=== PATIENT | female | born 1955 | race Caucasian/White ===

== ENCOUNTER → 2018-04-05 | Outpatient (CLI) | payer OTHER, MEDICARE ==
--- NOTE | 2018-04-05 16:39 | PCVCIMAG ---
APPROVED REPORT Study performed: 04/05/2018 10:41:38 EXAM: Comprehensive 2D, Doppler, and color-flow Echocardiogram Patient Location: Echo lab Status: routine BSA: 1.92 HR: 68 bpmBP: 122/76 mmHg Rhythm: NSR Other Information Study Quality: Adequate Indications Congestive Heart Failure Dyspnea CAD hx LA 2D Dimensions IVSd: 10.76 (7-11mm) LVDd: 43.42 mm PWd: 11.12 (7-11mm)Ascending Ao: 30.15 (22-36mm) LVDs: 33.45 (25-40mm) Left Atrium: 43.98 (27-40mm) Aortic Root: 34.72 mm LV Single Plane 4CH: 69.26 % LV Single Plane 2CH: 73.96 % Biplane EF: 71.0 % Volumes Left Atrial Volume (Systole) Single Plane 4CH: 104.74 mLSingle Plane 2CH: 84.87 mL LA ESV Index: 50.00 mL/m2 Aortic Valve AoV Peak Samir.: 2.09 m/s AO Peak Gr.: 17.52 mmHgLVOT Max P.99 mmHg LVOT Max V: 1.58 m/s Mitral Valve E/A Ratio: 1.0 MV Decel. Time: 249.91 ms MV E Max Samir.: 0.89 m/s MV A Samir.: 0.85 m/s IVRT: 76.12 ms Pulmonary Valve PV Peak Samir.: 1.06 m/sPV Peak Gr.: 4.47 mmHg Pulmonary Vein P Vein S: 0.29 m/sP Vein A: 0.33 m/s P Vein D: 0.58 m/sP Vein A Dur.: 152.2 msec P Vein S/D Ratio: 0.50 Tricuspid Valve TR Peak Samir.: 2.82 m/s TR Peak Gr.: 31.87 mmHg TV Vmax: 0.57 m/s Left Ventricle The left ventricle is normal size. There is normal LV segmental wall motion. There is normal left ventricular wall thickness. Left ventricular systolic function is normal. The left ventricular ejection fraction is within the normal range. LVEF is 65-70%. Grade II - pseudonormal filling dynamics. Right Ventricle The right ventricle is normal size. The right ventricular systolic function is normal. Atria Left atrium is severely dilated. Right atrium is at the upper limits of normal. Aortic Valve Moderate aortic valve sclerosis. No aortic regurgitation is present. There is no aortic valvular stenosis, however mildly increased, non-obstructive LVOT velocity present. Mitral Valve The mitral valve is normal in structure. Mild to moderate mitral regurgitation. No evidence of mitral valve stenosis. Tricuspid Valve The tricuspid valve is normal in structure. Mild tricuspid regurgitation with PAP of 39 mmHg. Pulmonic Valve The pulmonary valve is normal in structure. Trace pulmonic regurgitation. Great Vessels The aortic root is normal in size. IVC is normal in size and collapses >50% with inspiration. Pericardium There is no pericardial effusion. There is no pleural effusion. <Conclusion> The left ventricle is normal size. LVEF is 65-70%. Grade II - pseudonormal filling dynamics. The right ventricle is normal size. Left atrium is severely dilated. Right atrium is at the upper limits of normal. Moderate aortic valve sclerosis. There is no aortic valvular stenosis, however mildly increased, non-obstructive LVOT velocity present. Mild to moderate mitral regurgitation. Mild tricuspid regurgitation with PAP of 39 mmHg. The aortic root is normal in size. There is no pericardial effusion.
== END | disposition home or self-care (01) ==
LOC: PCVCIMAG 11:14
PROVIDERS: ATTEND Internal Medicine Cardiovascular Disease
DX: I08.0 Rheumatic disorders of both mitral and aortic valves (principal); I25.10 Atherosclerotic heart disease of native coronary artery without angina pectoris; R06.02 Shortness of breath; I25.5 Ischemic cardiomyopathy; I21.9 Acute myocardial infarction, unspecified; I50.9 Heart failure, unspecified
CPT/HCPCS: 93306

== ENCOUNTER → 2018-04-26 | Outpatient (CLI) | payer OTHER, MEDICARE ==
[~2018-04-26] MED LIST: REGADENOSON 0.4 MG/5 ML DISP.SYRIN. IV ONE
--- NOTE | 2018-04-26 09:03 | PCVCIMAG ---
EXAM: BILATERAL CAROTID DUPLEX INDICATION: Carotid Occlusive Disease. FINDINGS: Doppler Measurements (centimeters per second): RIGHT: Peak CCA-90, Peak ECA-102, Diastolic ICA-45, Peak ICA-111, ICA/CCA Ratio-1.2. LEFT: Peak CCA-100, Peak ECA-95, Diastolic ICA-41, Peak ICA-116, ICA/CCA Ratio-1.2. RIGHT CAROTID: The carotid bulb has mild plaque. The proximal internal carotid artery shows <40% stenosis. The common carotid artery shows no significant stenosis. The external carotid artery shows no significant stenosis. LEFT CAROTID: The carotid bulb has minimal plaque. The proximal internal carotid artery shows no significant stenosis. The common carotid artery shows no significant stenosis. The external carotid artery shows no significant stenosis. Antegrade flow in both vertebral arteries. IMPRESSION: <40% stenosis of the right internal carotid artery with mild plaque. No significant stenosis of the left internal carotid artery with minimal plaque. LOC:[id number]
--- NOTE | 2018-04-26 11:54 | PCVCIMAG ---
EXAM: ULTRASOUND OF THE THYROID INDICATION: Thyroid nodules. FINDINGS: The right thyroid lobe measures 1.4 x 1.5 x 4.7 cm. The left thyroid lobe measures 1.4 x 1.7 x 4.6 cm. 0.3 x 0.6 x 0.6 cm hypoechoic solid nodule mid right thyroid lobe. 0.5 x 0.8 x 0.8 cm solid partially calcified nodule medial aspect mid/lower right thyroid lobe. 0.9 x 0.9 x 1.1 cm solid nodule mid/lower left thyroid lobe laterally is the most dominant nodule. 0.4 x 0.5 x 0.5 cm hypoechoic solid partially calcified nodule mid upper left thyroid lobe laterally. IMPRESSION: 4 nodules in the thyroid as detailed above. The most dominant nodule is a 1.1 cm solid nodule in the lateral aspect of mid/lower left thyroid lobe. These areas are indeterminate on the current study. Further evaluation by ENT is suggested if these findings are new. LOC:[id number]
--- NOTE | 2018-04-26 15:27 | PCVCIMAG ---
APPROVED REPORT Imaging Protocol: Rest Tc-99m/Stress Tc-99m 1 day Study performed: 04/26/2018 09:27:49 Indication: Dyspnea, Pre-Operative CV evaluation, ICM Patient Location: Out-Patient Stress Nurse: Deloris Bruno RN, Kell Bond RN [place] Tech:YVETTE Ramos Ht: 5 ft 3 in Wt: 205 lbs BSA: 1.95 m2 HR: 54 bpm BP: 145/69 mmHg BMI: 36.3 Rhythm: Sinus Bradycardia, First degree AV Block, ST & T wave abn Medical History Medical History: HTN, Hyperlipidemia Medications: ASA, Atorvastatin, Carvedilol, Plavix, Mirapex, Demedex Allergies: Amoxicillen, Tegretol Cardiac Risk Factors: Age, CAD, CA Previous Cardiac Procedures: PCI - 12/2017 Pretest Chest Pain Characteristics: No chest pain Exercise History: Sedentary Physical Disabilities: Legs Meds Held (24 hrs): Carvedilol Resting Data Rest SPECT myocardial perfusion imaging was performed in supine position 45 minutes following the intravenous injection of 10.4 mCi of Tc-99m Sestamibi. Time of rest injection: 0930 Date: 04/26/2018 Administration Route: IV Administration Site: Left AC Pharmacologic Stress Pharmacologic stress test was performed by injecting Regadenoson 0.4 mg IV push over 10-15 seconds immediately followed by the intravenous injection of 32.9 mCi of Tc-99m Sestamibi. Time of stress injection: 1030 Date: 04/26/2018 Administration Route: IV Administration Site: Left AC Gated Stress SPECT was performed 45 minutes after stress injection. The images were gated to evaluate regional wall motion and calculate left ventricular ejection fraction. Stress Test Details Stress Test: Pharmacologic stress testing performed using 0.4 mg of regadenoson per 5 mL given IV over 10 seconds. Reason for pharmacologic stress test: requires leg braces. HRMax Heart Rate (APMHR): 160 bpm Resting HR: 54 bpmTarget HR (85% APMHR): 136 bpm Max HR Achieved: 90 bpm % of APMHR: 56 Recovery HR: 84 bpm BP Resting BP: 1485/69 mmHg Max BP: 132/62 mmHg Recovery BP: 139/67 mmHg ECG Resting ECG: Sinus Bradycardia, First degree AV Block, ST & T wave abn Stress ECG: Sinus Rhythm, First degree AV Block, ST & T wave abn Recovery ECG: Sinus Rhythm, First degree AV Block, ST & T wave abn Clinical Reason for Termination: Completed protocol Stress Symptoms: Dyspnea, Chest pain, Nausea Exercise duration: 0 min 55 sec Symptoms resolved with caffeine. Stress ECG Conclusion equivical Study Quality Study: Good Study Data Post stress, the left ventricular ejection was 84%.. SSS: 13 SRS: 8 SDS: 6 TID = 0.99. Perfusion Medium sized area of moderate reversible ischemia involving the mid/apical anterolateral left ventricle consistent with a left anterior descending distribution. Wall Motion Normal left ventricular size and function with no regional wall motion abnormalities. Nuclear Conclusion Medium sized area of moderate reversible ischemia involving the mid/apical anterolateral left ventricle consistent with a left anterior descending distribution. Normal left ventricular size and function with no regional wall motion abnormalities. Post stress, the left ventricular ejection was 84%. No prior study available for comparison. Interpreted by: Pedro Luis Alan MD Electronically Approved: 04/26/2018 14:43:05 <Conclusion> equivical
== END | disposition home or self-care (01) ==
LOC: PCVCIMAG 08:19
PROVIDERS: ATTEND Internal Medicine Cardiovascular Disease
DX: I25.10 Atherosclerotic heart disease of native coronary artery without angina pectoris (principal); I65.21 Occlusion and stenosis of right carotid artery; E04.2 Nontoxic multinodular goiter; I10 Essential (primary) hypertension; E78.5 Hyperlipidemia, unspecified; I25.2 Old myocardial infarction; I44.0 Atrioventricular block, first degree; I25.5 Ischemic cardiomyopathy; E78.00 Pure hypercholesterolemia, unspecified; Z88.1 Allergy status to other antibiotic agents; Z88.5 Allergy status to narcotic agent; Z79.82 Long term (current) use of aspirin; R06.09 Other forms of dyspnea
CPT/HCPCS: 76536; 78452; 93017; 93880; A9500; J2785

== ENCOUNTER → 2018-04-27 | Outpatient (CLI) | payer OTHER, MEDICARE | END | disposition home or self-care (01) | LOC: PCVCCLINIC 13:32 | PROVIDERS: ATTEND Internal Medicine Cardiovascular Disease | DX: I10 Essential (primary) hypertension (principal); I25.5 Ischemic cardiomyopathy; I65.23 Occlusion and stenosis of bilateral carotid arteries; E04.2 Nontoxic multinodular goiter; Z79.82 Long term (current) use of aspirin; Z88.8 Allergy status to other drugs, medicaments and biological substances | CPT/HCPCS: 93005; G0463 ==

== ENCOUNTER → 2018-10-24 | Outpatient (CLI) | payer OTHER ==
--- NOTE | 2018-10-24 11:07 | PCVCIMAG ---
EXAM: BILATERAL RENAL ULTRASOUND AND BILATERAL RENAL DUPLEX INDICATION: Hypertension FINDINGS: Right kidney: Length measures 10.9 cm. No hydronephrosis or extensive renal scarring. 1.2 x 1.7 cm benign cyst mid pole. Right renal duplex: Adequate technical quality. No sonographic evidence of renal artery stenosis. The aortic to renal artery ratio is 1.1. The renal vein is patent. Left kidney: Length measures 10.5 cm. No hydronephrosis or extensive renal scarring. 2.0 cm benign cyst mid pole. Left renal duplex: Adequate technical quality. No sonographic evidence of renal artery stenosis. The aortic to renal artery ratio is 2.2. The renal vein is patent. Bladder: No obvious abnormalities. IMPRESSION: No significant renal artery stenosis. No hydronephrosis bilaterally. LOC:[id number]
== END | disposition home or self-care (01) ==
LOC: PCVCIMAG 08:37
PROVIDERS: ATTEND Internal Medicine Cardiovascular Disease
DX: I10 Essential (primary) hypertension (principal)
CPT/HCPCS: 76770; 93975

== ENCOUNTER → 2019-01-09 | Outpatient (CLI) | payer OTHER ==
--- NOTE | 2019-01-09 13:49 | PCVCIMAG ---
APPROVED REPORT Study performed: 01/09/2019 07:47:35 EXAM: Comprehensive 2D, Doppler, and color-flow Echocardiogram Patient Location: Echo lab Status: routine BSA: 1.95 HR: 60 bpmBP: 152/80 mmHg Rhythm: NSR Other Information Study Quality: Adequate Risk Factors: Cardiac Risk Factors: HTN Indications CAD mitral regurgitation, hx renal stenosis 2D Dimensions IVSd: 11.01 (7-11mm) LVDd: 44.02 mm PWd: 11.29 (7-11mm)Ascending Ao: 31.15 (22-36mm) LVDs: 27.16 (25-40mm) Left Atrium: 48.32 (27-40mm) Aortic Root: 33.01 mm LV Single Plane 4CH: 64.18 % LV Single Plane 2CH: 68.07 % Biplane EF: 65.5 % Volumes Left Atrial Volume (Systole) Single Plane 4CH: 132.28 mLSingle Plane 2CH: 104.70 mL LA ESV Index: 60.00 mL/m2 Aortic Valve AoV Peak Samir.: 2.03 m/s AO Peak Gr.: 16.56 mmHgLVOT Max P.55 mmHg LVOT Max V: 1.37 m/s Mitral Valve E/A Ratio: 0.9 MV Decel. Time: 240.92 ms MV E Max Samir.: 1.04 m/s MV A Samir.: 1.22 m/s IVRT: 96.89 ms Pulmonary Valve PV Peak Samir.: 0.95 m/sPV Peak Gr.: 3.62 mmHg Pulmonary Vein P Vein S: 0.35 m/sP Vein A: 0.36 m/s P Vein D: 0.49 m/sP Vein A Dur.: 159.2 msec P Vein S/D Ratio: 0.71 Tricuspid Valve TR Peak Samir.: 2.96 m/s TR Peak Gr.: 35.13 mmHg TV Vmax: 0.62 m/s Left Ventricle The left ventricle is normal size. There is normal LV segmental wall motion. There is normal left ventricular wall thickness. Left ventricular systolic function is normal. The left ventricular ejection fraction is within the normal range. LVEF is 65%. Grade I - abnormal relaxation pattern. Right Ventricle The right ventricle is normal size. The right ventricular systolic function is normal. Atria Left atrium is severely dilated. The right atrium size is normal. Aortic Valve Mild aortic valve sclerosis. No aortic regurgitation is present. There is no aortic valvular stenosis. Mitral Valve The mitral valve is normal in structure. Mild mitral regurgitation. No evidence of mitral valve stenosis. Tricuspid Valve The tricuspid valve is normal in structure. Mild-moderate tricuspid regurgitation with PAP of 42 mmHg. Pulmonic Valve The pulmonary valve is normal in structure. There is no pulmonic valvular regurgitation. Great Vessels The aortic root is normal in size. IVC is normal in size and collapses >50% with inspiration. Pericardium There is no pericardial effusion. There is no pleural effusion. <Conclusion> The left ventricle is normal size. LVEF is 65%. Grade I - abnormal relaxation pattern. The right ventricle is normal size. Left atrium is severely dilated. Mild aortic valve sclerosis. Mild mitral regurgitation. Mild-moderate tricuspid regurgitation with PAP of 42 mmHg. The aortic root is normal in size. There is no pericardial effusion.
== END | disposition home or self-care (01) ==
LOC: PCVCIMAG 08:15
PROVIDERS: ATTEND Internal Medicine Cardiovascular Disease
DX: I08.3 Combined rheumatic disorders of mitral, aortic and tricuspid valves (principal); I25.10 Atherosclerotic heart disease of native coronary artery without angina pectoris; I10 Essential (primary) hypertension; Z88.1 Allergy status to other antibiotic agents
CPT/HCPCS: 93306